=== PATIENT | female | born 1935 | race Caucasian/White ===

== ENCOUNTER 2016-09-13 12:31 | Outpatient (CLI) | payer BC, MEDICARE ==
[2016-05-13 16:38] VITALS: BP 127/71
[2016-09-13 12:39] LABS: BASOPHILS % 0.4 (0.0-1.5); EOSINOPHILS % 4.4 % (0.0-6.8); LYMPHOCYTES # 0.9 # k/uL (0.6-4.0); MONOCYTES # 0.3 # k/uL (0.0-0.9); MONOCYTES % 5.1 % (0.0-11.0); NEUTROPHILS # 4.9 # k/uL (1.4-7.7)
[2016-09-13 12:56] LABS: eGFR (African) > 60; eGFR (Non-African) > 60
[2016-09-15 10:24] LABS: APPEARANCE,URINE Cloudy (CLEAR); COLOR,URINE Yellow (YELLOW); OCCULT BLOOD,URINE Trace-intact (NEGATIVE); UROBILINOGEN URINE 0.2 Eu (0.2-1.0)
[2016-09-15 10:38] LABS: AMORPHOUS SEDIMENT,UR FEW (NEGATIVE)
== END 2016-09-13 12:33 ==
LOC: LABRHC 12:31
PROVIDERS: ATTEND Family Medicine
DX: R35.0 Frequency of micturition (principal); E78.5 Hyperlipidemia, unspecified; E11.9 Type 2 diabetes mellitus without complications; D50.9 Iron deficiency anemia, unspecified; I10 Essential (primary) hypertension; E03.9 Hypothyroidism, unspecified
CPT/HCPCS: 80048; 80061; 81002; 83036; 84443; 85025

== ENCOUNTER 2016-10-11 14:28 | Outpatient (CLI) | payer BC, MEDICARE ==
[2016-05-13 16:38] VITALS: BP 127/71
[2016-10-11 14:40] LABS: APPEARANCE,URINE Slightly Cloudy (CLEAR); COLOR,URINE Yellow (YELLOW); OCCULT BLOOD,URINE Trace-intact (NEGATIVE); UROBILINOGEN URINE 0.2 Eu (0.2-1.0)
[2016-10-11 14:57] LABS: AMORPHOUS SEDIMENT,UR FEW (NEGATIVE)
== END 2016-10-11 14:30 ==
LOC: LAB 14:28
PROVIDERS: ATTEND Family Medicine
DX: N39.0 Urinary tract infection, site not specified (principal)
CPT/HCPCS: 81002; 87086; 87186

== ENCOUNTER 2017-01-26 11:27 | Outpatient (CLI) | payer BC ==
[2016-05-13 16:38] VITALS: BP 127/71
[2017-01-26 11:43] LABS: BASOPHILS % 0.9 (0.0-1.5); EOSINOPHILS % 3.2 % (0.0-6.8); MEAN CORPUSCULAR HEMOGLOBIN 34.4 pg (28.0-34.0); MEAN CORPUSCULAR VOLUME 107.9 fl (80.0-100.0); MONOCYTES % 4.7 % (0.0-11.0); NEUTROPHILS # 4.8 # k/uL (1.4-7.7)
[2017-01-26 12:13] LABS: eGFR (African) > 60; eGFR (Non-African) 42
--- NOTE | 2017-01-26 20:50 | Diagnostic Imaging Report ---
LACHO ZARCO [facility] [address] [facility] [address] [address] Report Submission Date: Jan 26, 2017 1:02:03 PM CDT Patient Study Name: YOHANNES MICHELLE FREDERIC Date: Jan 26, 2017 11:44:27 AM CDT Modality Type: CR Gender: F Description: SHOULDER : 37 Institution: [facility] Physician: LACHO ZARCO Left shoulder - two views Clinical history: Chronic pain for 6 months. Decreased range of motion. Findings: Examination left shoulder in AP view with internal and external rotation of the humeral head fails to demonstrate evidence of fracture or dislocation. There is mild narrowing of the acromioclavicular joint with osteophyte formation. Impression: 1. Degenerative changes in the acromioclavicular joint. 2. No fracture. Electronically signed on Jan 26, 2017 1:02:03 PM CDT by: Brian BRADSHAW
== END 2017-01-26 11:30 ==
LOC: RAD 11:27
PROVIDERS: ATTEND Family Medicine
DX: E11.9 Type 2 diabetes mellitus without complications (principal); R10.84 Generalized abdominal pain; M25.512 Pain in left shoulder
CPT/HCPCS: 36415; 73030; 80053; 83036; 85025

== ENCOUNTER 2017-05-16 12:43 | Outpatient (CLI) | payer BC ==
[2016-05-13 16:38] VITALS: BP 127/71
[2017-05-16 13:18] LABS: BASOPHILS % 0.8 (0.0-1.5); EOSINOPHILS % 2.2 % (0.0-6.8); MEAN CORPUSCULAR HEMOGLOBIN 34.2 pg (28.0-34.0); MEAN CORPUSCULAR VOLUME 105.5 fl (80.0-100.0); MONOCYTES % 5.1 % (0.0-11.0); NEUTROPHILS # 4.1 # k/uL (1.4-7.7)
[2017-05-16 13:27] LABS: eGFR (African) > 60; eGFR (Non-African) > 60
== END 2017-05-16 12:44 ==
LOC: OUT 12:43
PROVIDERS: ATTEND Anesthesiology Pain Medicine
DX: I10 Essential (primary) hypertension (principal); E11.9 Type 2 diabetes mellitus without complications
CPT/HCPCS: 80053; 83036; 85025

== ENCOUNTER 2017-06-06 08:28 | Outpatient (CLI) | payer BC ==
[2016-05-13 16:38] VITALS: BP 127/71
[~2017-06-06 08:28] MED LIST: BUPIVACAINE HCL/PF 2.5 MG/ML 10ML VIAL IV ONE; Lidocaine 1% 5ml(IM or SUTURE)(PAIN CLINIC) ONE; TRIAMCINOLONE ACETONID 40MG/ML VIAL ONE
--- NOTE | 2017-06-07 09:24 | HISTORY AND PHYSICAL REPORT ---
REFERRING PHYSICIAN: Dr. Toni Recio Dear Toni: HISTORY OF PRESENT ILLNESS: I had the opportunity of seeing Ca Lora today as an outpatient at [facility]. As you are aware, Ca is a delightful 81-year-old white female with a history of chronic left shoulder pain, immobility, and inability to raise the arm. She is also coming in with a complaint of right ankle pain and bilateral knee pain. The shoulder is her chief complaint. I will also evaluate her for her knees and her ankle today. She denies radiating pain in the arm except over the area of the left shoulder. PAST MEDICAL HISTORY: 1. Stomach ulcers or gastritis. 2. Bowel incontinence. 3. Urinary incontinence. 4. Chronic pain. 5. Vision problems. 6. Hypertension. 7. Hiatal hernia. 8. Anxiety and depression. 9. Memory problems. 10. Diabetes. 11. Hypothyroidism. PAST SURGICAL HISTORY: 1. Bilateral knee replacements with left knee revised x2. 2. Fatty tissue removed from her left shoulder. 3. Appendectomy. 4. Tonsillectomy. 5. Cataract removed and lens implanted bilaterally. 6. Right ankle ORIF x2 with hardware placement. CURRENT DAILY MEDICATIONS: 1. Felicity 5/325 mg 2 p.o. every 6 hours p.r.n. pain. 2. Aspirin 81 mg daily. 3. Diclofenac-Misoprostol 75-200 b.i.d. 4. Gabapentin 300 mg b.i.d. 5. Namenda 10 mg daily. 6. Aricept 5 mg at bedtime. 7. Lipitor 10 mg at bedtime. 8. Citalopram 20 mg daily. 9. Metoprolol 50 mg b.i.d. 10. Nitrofurantoin 100 mg every 6 hours. 11. Nystatin powder b.i.d. 12. Levothyroxine 100 mcg daily. 13. HCTZ 20 mg daily. 14. Bactrim DS b.i.d. 15. Protonix 40 mg daily. ALLERGIES: Penicillin causing a rash. SOCIAL HISTORY: She denies tobacco use, unknown if ever used. Rarely drinks alcohol. Denies recreational drug use. She has been for 39 years. She does have children. She lives at home with her . She completed the 12th grade. She is not current employed. She retired in 2006. She is disabled for unknown reasons. FAMILY HISTORY: Father with cancer. Mother with diabetes and cardiovascular disease. REVIEW OF SYSTEMS: In the past month or so, she reports swelling in her hands and feet, urinary incontinence, stomach pain or upset stomach. Pain worsens gradually as the day progresses or with getting up in the morning. Pain is improved with sitting and immobilization. PHYSICAL EXAMINATION: General: The patient is well nourished, well developed, and in no apparent distress. Awake, alert, and oriented. Vital Signs: BP: 132/70, P: 60, R: 18, oxygen saturation was 96% on room air. HEENT: Pupils are equal, round, and reactive to light and accommodation. Extraocular movements intact. No facial droop. Neck: There is full range of motion of the cervical spine. No evidence of adenopathy. Thyroid is nontender, no enlarged. Carotids are without bruits. Chest: Clear to auscultation bilaterally. Normal chest excursion. Heart: Regular rate and rhythm without murmur. Abdomen: Benign. Normoactive bowel sounds. Extremities: There is a positive Empty Can finding, a positive resisted abduction and extension of the left arm, inability to raise the left arm past 80 degrees. Pain and tenderness over the posterior shoulder, the acromioclavicular joint, and the subdeltoid bursa. I do not have imaging on her shoulder at this point. Bilateral knees with midline incisions. Both knees appear swollen and tender to palpation and evidence of hyperpathia consistent with failed knee replacement due to pain and possible complex regional pain syndrome. Finally, the right ankle with pain at the tibiotalar with flexion and extension. ASSESSMENT: 1. 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 Possible rotator cuff tear. Would order an MRI study. We will plan on a left posterior shoulder joint injection with injection of the acromioclavicular and subdeltoid bursa to see if we can get this nice lady some immediate relief. I did discuss bone marrow aspirate concentrate injection of the shoulder. 2. Right tibiotalar osteoarthritic degenerative joint pain. I discussed follow up for an injection of tibiotalar joint and bone marrow aspirate concentrate injection for degenerative joint disease at the tibiotalar joint. 3. Complex regional pain syndrome, status post bilateral knee replacements. PLAN: At this point, I am going to start by placing a shoulder joint injection in the left shoulder with an x-ray today and have her follow up to reevaluate her shoulder and consider a tibiotalar joint injection for the right ankle if necessary. Dr. Recio, thank you very much for allowing me to take part in the care of this nice lady. cc: Dr. Toni BRADSHAW
--- NOTE | 2017-06-07 09:36 | SHOULDER JOINT INJECT FLOURO ---
PROCEDURE: Left shoulder joint injection with fluoroscopic guidance. DESCRIPTION OF PROCEDURE: The risks and benefits of the injection were discussed with the patient, including the risks of infection, bleeding, and nerve injury. Furthermore, I discussed the risk of steroid exposure causing hyperglycemia, hypertension, osteoporosis, or increased infectious risks. The patient understood these risks and agreed to proceed. Consent was obtained. The patient was placed in the prone position on the fluoroscopy table. The skin overlying the posterior shoulder was cleaned. An AP fluoroscopic view of the left shoulder joint was obtained. A 23-gauge, 1- inch Quickie-tip spinal needle was inserted under direct fluoroscopic guidance from a posterior approach until the needle contacted the head of the humerus at the shoulder joint. It was verified that there was no aspiration of fluid or blood. The medication was subsequently injected in the joint. At this point, the medication was also put in the left AC bursa and the left subdeltoid bursa. The stylette was replaced in the needle and the needle was removed from the shoulder joint. The skin was cleaned and a bandage was applied over the injection site. ASSESSMENT: Degenerative joint disease of the left shoulder. PLAN: Left shoulder joint injection with fluoroscopic guidance. FOLLOW UP: Return to clinic if problems develop or worsen. cc: Dr. Toni BRADSHAW
== END 2017-06-06 08:30 ==
LOC: OUT 08:28
PROVIDERS: ATTEND Anesthesiology Pain Medicine
DX: M19.012 Primary osteoarthritis, left shoulder (principal)
CPT/HCPCS: 20611; 99213; 99214; J3301; J3490

== ENCOUNTER 2017-07-15 16:56 | Outpatient (CLI) | payer BC ==
[2016-05-13 16:38] VITALS: BP 127/71
[2017-07-15 17:11] LABS: BASOPHILS % 0.6 (0.0-1.5); EOSINOPHILS % 1.5 % (0.0-6.8); MEAN CORPUSCULAR HEMOGLOBIN 35.3 pg (28.0-34.0); MEAN CORPUSCULAR VOLUME 109.7 fl (80.0-100.0); NEUTROPHILS # 5.7 # k/uL (1.4-7.7)
[2017-07-15 17:32] LABS: eGFR (African) > 60; eGFR (Non-African) 42
== END 2017-07-15 16:57 ==
LOC: LABRHC 16:56
PROVIDERS: ATTEND Family Medicine
DX: I10 Essential (primary) hypertension (principal); N39.0 Urinary tract infection, site not specified
CPT/HCPCS: 80053; 85025; 87086; 87186

== ENCOUNTER 2017-09-06 09:09 | Outpatient (CLI) | payer BC ==
[2016-05-13 16:38] VITALS: BP 127/71
--- NOTE | 2017-09-07 12:03 | SURGICAL PROCEDURE NOTE PAIN ---
REASON FOR VISIT: Ms. Lora is seen today in follow up for bilateral knee pain which responded well to geniculate nerve root block of bilateral knees. She said the knee pain is not nearly as significant as it was. She has a history of a tibiotalar right ankle joint replacement and chronic right ankle pain; and she says at this point, her right ankle is her worst complaint. She is having difficulty walking. She has had nonsteroidal antiinflammatory topical cream and has been markedly limited by pain in the ankle. I have told her that I could do an ankle joint injection distal to her implant at the navicular calcaneal joint and that this may be palliative for her chronic right ankle pain but if this were successful but not long lasting, I could consider a bone marrow aspirate injection or stem cell placement for chronic degenerative ankle pain. At this point, I am going to plan on a right ankle joint injection with fluoroscopic guidance. PROCEDURE PERFORMED: Right ankle joint injection with fluoroscopic guidance. DESCRIPTION OF PROCEDURE: The risks and benefits were discussed with the patient including the risk of infection, bleeding, nerve injury, and headache, as well as the risks of steroid exposure causing hyperglycemia, hypertension, osteoporosis, or increased infectious risks. The patient understood these risks and agreed to proceed. Consent was obtained prior to the procedure. Under lateral fluoroscopic imaging, the right ankle joint was identified and the navicular calcaneal junction was located. A number 25-gauge needle was then advanced to the navicular calcaneal joint and 1 mL of nonionic contrast revealed adequate spread throughout the ankle joint. Following this, the medication was injected was injected. The patient tolerated the procedure well. There were no apparent complications. She was discharged home in good condition. ASSESSMENT: 1. Right chronic ankle pain. 2. Degenerative joint disease of the right ankle. 3. Osteoarthritis of the right ankle. FOLLOW UP: Return to clinic if problems develop or worsen. cc: Dr. Toni BRADSHAW
== END 2017-09-06 09:11 ==
LOC: OUT 09:09
PROVIDERS: ATTEND Anesthesiology Pain Medicine
DX: M19.071 Primary osteoarthritis, right ankle and foot (principal)
CPT/HCPCS: J3301; J3490; Q9966; 20610; 99213

== ENCOUNTER 2017-09-21 13:52 | Outpatient (CLI) | payer BC ==
[2016-05-13 16:38] VITALS: BP 127/71
--- NOTE | 2017-09-21 15:08 | Diagnostic Imaging Report ---
LACHO ZARCO [facility] [address] [facility] [address] [address] Report Submission Date: Sep 21, 2017 2:34:35 PM [employer] Patient Study Name: YOHANNES MICHELLE FREDERIC Date: Sep 21, 2017 2:01:41 PM [employer] Modality Type: CR Gender: F Description: LOWER EXTREMITY : 37 Institution: [facility] Physician: LACHO ZARCO Examination: Plain film ankles History: BILATERAL ANKLE, PAIN IN ANKLES, RT WORSE THAN LEFT X2 DAYS, RT ANKLE INJURY X18 YEARS AGO, ANKLE REPLACEMENT (Hx) / RIGHT ANKLE PAIN, S/P RIGHT TOTAL ANKLE REPLACEMENT (DICOM Hx) / RIGHT ANKLE PAIN, S/P RIGHT TOTAL ANKLE REPLACEMENT (Pt comments) Comparison exam: None provided. Findings: 3 views of the right and left ankles. Right ankle demonstrates significant postsurgical changes with fixation hardware involving the distal fibula. Ankle replacement hardware in place. Scattered osteophytes. No evidence for acute appearing fracture line. No gross soft tissue abnormality. Imaging of the left ankle demonstrates normal cortical margins. Talar dome appears to be intact. Calcaneal spurs. No gross soft tissue abnormality. Impression: Extensive right ankle postsurgical changes. No acute appearing cortical disruption. No acute left ankle acute appearing osseous abnormality. Electronically signed on Sep 21, 2017 2:34:35 PM [employer] by: Kobe BRADSHAW
== END 2017-09-21 13:53 ==
LOC: RAD 13:52
PROVIDERS: ATTEND Family Medicine
DX: M25.571 Pain in right ankle and joints of right foot (principal)

== ENCOUNTER 2017-11-15 16:26 | Outpatient (CLI) | payer BC ==
[2016-05-13 16:38] VITALS: BP 127/71
== END 2017-11-15 16:27 ==
LOC: LABRHC 16:26
PROVIDERS: ATTEND Physician Assistant
DX: R30.0 Dysuria (principal)
CPT/HCPCS: 87086

== ENCOUNTER 2018-01-31 13:41 | Outpatient (CLI) | payer OTHER ==
[2016-05-13 16:38] VITALS: BP 127/71
--- NOTE | 2018-02-02 18:44 | SHOULDER JOINT INJECT FLOURO ---
SUBJECTIVE: Ca presents in follow up. This is a patient I have done both shoulder and knee injections for arthropathy. She presents with return of left shoulder pain for a left shoulder joint injection under fluoroscopy. PHYSICAL EXAMINATION: General: The patient is well nourished, well developed, and in no apparent distress. Awake, alert, and oriented. HEENT: Pupils are equal, round, and reactive to light and accommodation. Extraocular movements intact. No facial droop. Neck: There is full range of motion of the cervical spine. No evidence of adenopathy. Thyroid is nontender, not enlarged. Carotids are without bruits. Shoulders: There is impingement of left shoulder 8 degrees. Chest: Clear to auscultation bilaterally. Normal chest excursion. Heart: Regular rate and rhythm without murmur. Abdomen: Benign. Normoactive bowel sounds. Motor/sensory: Intact in the upper and lower extremities. Moves all extremities freely. Back: There are normal cervical, thoracic and lumbar curvatures. There are negative sacroiliac joint findings bilaterally. No evidence of pain or tenderness over the facet joints. Negative piriformis bilaterally. Negative straight leg raise. No evidence of dermatomal weakness or numbness in the lower extremities. Bilateral negative femoral nerve stretch. Patellar tendons are 2+ and equal bilaterally. PROCEDURE: Left shoulder joint injection with fluoroscopic guidance. DESCRIPTION OF PROCEDURE: The risks and benefits of the injection were discussed with the patient, including the risks of infection, bleeding, and nerve injury. Furthermore, I discussed the risk of steroid exposure causing hyperglycemia, hypertension, osteoporosis, or increased infectious risks. The patient understood these risks and agreed to proceed. Consent was obtained. The patient was placed in the prone position on the fluoroscopy table. The skin overlying the posterior shoulder was cleaned. An AP fluoroscopic view of the left shoulder joint was obtained. A spinal needle was inserted under direct fluoroscopic guidance from a posterior approach until the needle contacted the head of the humerus at the shoulder joint. It was verified that there was no aspiration of fluid or blood. The medication was subsequently injected. The stylette was replaced in the needle and the needle was removed from the shoulder joint. The skin was cleaned and a bandage was applied over the injection site. ASSESSMENT: Degenerative joint disease of the shoulder. PLAN: Left shoulder joint injection with fluoroscopic guidance. FOLLOW UP: Return to clinic if problems develop or worsen. cc: Dr. Toni BRADSHAW
== END 2018-01-31 13:42 ==
LOC: OUT 13:41
PROVIDERS: ATTEND Anesthesiology Pain Medicine
DX: M19.012 Primary osteoarthritis, left shoulder (principal)
CPT/HCPCS: 20610; 99214; G0463; J3301; J3490

== ENCOUNTER 2018-02-10 16:44 | Outpatient (CLI) | payer OTHER, BC ==
[2016-05-13 16:38] VITALS: BP 127/71
== END 2018-02-10 16:45 ==
LOC: LABRHC 16:44
PROVIDERS: ATTEND Family Medicine
DX: N39.0 Urinary tract infection, site not specified (principal)
CPT/HCPCS: 87086; 87186

== ENCOUNTER 2018-03-07 16:04 | Outpatient (CLI) | payer OTHER, BC ==
[2016-05-13 16:38] VITALS: BP 127/71
== END 2018-03-07 16:06 ==
LOC: LABRHC 16:04
PROVIDERS: ATTEND Family Medicine
DX: N39.0 Urinary tract infection, site not specified (principal)
CPT/HCPCS: 87086

== ENCOUNTER 2018-04-05 14:22 | Outpatient (CLI) | payer OTHER, BC ==
[2016-05-13 16:38] VITALS: BP 127/71
[2018-04-05 17:21] LABS: BASOPHILS % 0.9 (0.0-1.5); EOSINOPHILS % 4.7 % (0.0-6.8); MEAN CORPUSCULAR HEMOGLOBIN 34.5 pg (28.0-34.0); MONOCYTES % 3.9 % (0.0-11.0); NEUTROPHILS # 4.4 # k/uL (1.4-7.7)
[2018-04-05 17:23] LABS: eGFR (African) > 60; eGFR (Non-African) 38
== END 2018-04-05 14:23 ==
LOC: LABRHC 14:22
PROVIDERS: ATTEND Family Medicine
DX: E11.9 Type 2 diabetes mellitus without complications (principal); N39.0 Urinary tract infection, site not specified
CPT/HCPCS: 80048; 80061; 83036; 85025; 87086; 87186

== ENCOUNTER 2018-05-03 14:49 | Outpatient (CLI) | payer OTHER, BC ==
[2016-05-13 16:38] VITALS: BP 127/71
== END 2018-05-03 14:50 ==
LOC: LABRHC 14:49
PROVIDERS: ATTEND Family Medicine
DX: N39.0 Urinary tract infection, site not specified (principal)
CPT/HCPCS: 87086; 87186

== ENCOUNTER 2018-05-30 09:06 | Outpatient (CLI) | payer BC, OTHER ==
[2016-05-13 16:38] VITALS: BP 127/71
[2018-05-30] MEDS ORDERED: BUPIVACAINE HCL/PF 5 MG/ML 10ML VIAL IV ONE (10:35)
[2018-05-30] MEDS ORDERED: TRIAMCINOLONE ACETONID 40MG/ML VIAL ONE (10:35)
[2018-05-30] MEDS ORDERED: Lidocaine 1% 5ml(IM or SUTURE)(PAIN CLINIC) ONE (10:35)
--- NOTE | 2018-05-30 12:07 | SHOULDER JOINT INJECT FLOURO ---
SUBJECTIVE: Ms. Lora follows up today with return of left shoulder pain. She had a left shoulder joint injection done in January for palliation of a rotator cuff tear. I told her that other than a stem cell graft, I would need to send her for further Orthopedic evaluation. At this point, she does not want to take that route. She would like for me to repeat a shoulder joint injection. I told her I could do this a few times a year for palliation of her shoulder pain on the left side. She is in agreement today and we will proceed. PROCEDURE: Left shoulder joint injection with fluoroscopic guidance. DESCRIPTION OF PROCEDURE: The risks and benefits of the injection were discussed with the patient, including the risks of infection, bleeding, and nerve injury. Furthermore, I discussed the risk of steroid exposure causing hyperglycemia, hypertension, osteoporosis, or increased infectious risks. The patient understood these risks and agreed to proceed. Consent was obtained. The patient was placed in the prone position on the fluoroscopy table. The skin overlying the posterior shoulder was cleaned. An AP fluoroscopic view of the left shoulder joint was obtained. A spinal needle was inserted under direct fluoroscopic guidance from a posterior approach until the needle contacted the head of the humerus at the shoulder joint. It was verified that there was no aspiration of fluid or blood. Then the medication was subsequently injected. The stylette was replaced in the needle and the needle was removed from the shoulder joint. The skin was cleaned and a bandage was applied over the injection site. ASSESSMENT: Degenerative joint disease of the shoulder. PLAN: Left shoulder joint injection with fluoroscopic guidance. FOLLOW UP: Return to clinic if problems develop or worsen. cc: Dr. Toni BRADSHAW
== END 2018-05-30 09:08 ==
LOC: OUT 09:06
PROVIDERS: ATTEND Anesthesiology Pain Medicine
DX: M19.012 Primary osteoarthritis, left shoulder (principal)
CPT/HCPCS: J3301; J3490; 20610; 99213; G0463

== ENCOUNTER 2018-07-26 10:29 | Outpatient (CLI) | payer OTHER, BC ==
[2016-05-13 16:38] VITALS: BP 127/71
[2018-07-26 17:36] LABS: eGFR (Non-African) > 60
--- NOTE | 2018-07-27 04:53 | Diagnostic Imaging Report ---
LACHO ZARCO [facility] [address] [facility] [address] [id number] Report Submission Date: Jul 26, 2018 1:20:01 PM PIGMENT PUSHER Patient Study Name: YOHANNES MICHELLE FREDERIC Date: Jul 26, 2018 11:04:50 AM PIGMENT PUSHER Modality Type: DX Gender: F Description: CHEST : 37 Institution: [facility] Physician: LACHO ZARCO PA AND LATERAL CHEST HISTORY: Preop clearance. Dyspnea on exertion COMPARISON: None PA and Lateral Chest dated July 26, 2018 demonstrates a normal cardiomediastinal silhouette. Pulmonary vascularity is normal. Lungs are clear. IMPRESSION: NO ACTIVE DISEASE. Electronically signed on Jul 26, 2018 1:20:01 PM PIGMENT PUSHER by: Chrystal BRADSHAW
[2018-07-31 12:35] LABS: BASOPHILS % 0.2 (0.0-1.5); EOSINOPHILS % 4.3 % (0.0-6.8); MEAN CORPUSCULAR HEMOGLOBIN 34.9 pg (28.0-34.0); MONOCYTES % 5.5 % (0.0-11.0); NEUTROPHILS # 3.9 # k/uL (1.4-7.7)
== END 2018-07-26 10:32 ==
LOC: LAB 10:29
PROVIDERS: ATTEND Family Medicine
DX: Z01.810 Encounter for preprocedural cardiovascular examination (principal); I10 Essential (primary) hypertension; R06.09 Other forms of dyspnea
CPT/HCPCS: 36415; 71046; 80053; 85025

== ENCOUNTER 2019-03-28 10:20 | Outpatient (CLI) | payer OTHER ==
[2016-05-13 16:38] VITALS: BP 127/71
[2019-03-28 10:58] LABS: BASOPHILS % 0.5 % (0.0-1.5); NEUTROPHILS # 4.5 # k/uL (1.4-7.7)
[2019-03-28 11:25] LABS: eGFR (Non-African) 37
== END 2019-03-28 10:22 ==
LOC: RT 10:20
PROVIDERS: ATTEND Family Medicine
DX: I10 Essential (primary) hypertension (principal); E11.9 Type 2 diabetes mellitus without complications; I49.9 Cardiac arrhythmia, unspecified
CPT/HCPCS: 36415; 80053; 83036; 85025

== ENCOUNTER 2019-08-03 14:15 | Outpatient (CLI) | payer OTHER ==
[2016-05-13 16:38] VITALS: BP 127/71
[2019-08-03 15:57] LABS: eGFR (Non-African) 37
[2019-08-03 16:19] LABS: BASOPHILS % 0.9 % (0.0-1.5); NEUTROPHILS # 3.1 # k/uL (1.4-7.7)
[2019-08-06 07:58] LABS: A1C 5.1 % (<5.7)
== END 2019-08-03 14:20 ==
LOC: LABRHC 14:15
PROVIDERS: ATTEND Family Medicine
DX: I10 Essential (primary) hypertension (principal); E11.9 Type 2 diabetes mellitus without complications
CPT/HCPCS: 80053; 83036; 84443; 85025